=== PATIENT | female | born 1965 | race Caucasian/White ===

== ENCOUNTER 2018-12-03 02:26 | Outpatient (CLI) | payer BC, SELFPAY ==
[2018-12-03 07:59] LABS: Hemoglobin A1C 5.2 % (4.5-6.2)
[2018-12-03 08:37] LABS: Anion Gap 7.6 mmol/L (3-11); BUN 12 mg/dL (7-18); CO2 29.4 mmol/L (21.0-32.0); CREATININE 0.69 mg/dL (0.55-1.02); Calcium 8.6 mg/dL (8.5-10.1); Chloride 102 mmol/L (98-107); FREE T4 1.24 ng/dL (0.76-1.46); Glucose 86 mg/dL (70-100); Potassium 4.3 mmol/L (3.5-5.1); Sodium 139 mmol/L (136-145); TSH 0.11 uIU/mL (0.358-3.74)
[2018-12-03 08:50] LABS: Cholesterol 209 mg/dL (50-200); HDL Cholesterol 78 mg/dL (40-60); LDL CHOLESTEROL 113 mg/dL (<100); Triglyceride 57 mg/dL (30-150)
== END 2018-12-03 02:46 ==
PROVIDERS: PCP Nurse Practitioner Family; Visit Provider Nurse Practitioner Family
DX: E03.9 Hypothyroidism, unspecified (principal); E78.5 Hyperlipidemia, unspecified
CPT/HCPCS: 36415; 80048; 80061; 83721; 83036; 84439; 84443

== ENCOUNTER 2018-12-18 00:56 | Outpatient (CLI) | payer BC, SELFPAY ==
--- NOTE | 2018-12-18 12:20 | DI.MAMMO_ITS ---
SYMPTOMS/DIAGNOSIS: SCREENING, Z12.31 MAMMOGRAMS: Mammograms were interpreted according to the usual protocol including computer analysis with CAD system, tomosynthesis and C view imaging. Comparison is with prior examinations. No suspicious masses are seen in the right breast. No suspicious microcalcifications are present. There is an area of breast asymmetry in the upper central left breast on the mediolateral oblique view. This area likely lies in the outer quadrant of the breast on the craniocaudad view. These areas should be further evaluated with spot compression views. Ultrasound may be indicated at that time. IMPRESSION: Additional views of the left breast as described above. Category 0, breast density C. MQSA ASSESSMENT OF FINDINGS: Incomplete: Needs additional imaging evaluation. Category 0. Patient will receive a letter notifying them of these results. Bi-RADS category C. The breasts are heterogeneously dense, which may obscure small masses.
== END 2018-12-18 01:16 ==
PROVIDERS: PCP Nurse Practitioner Family; Visit Provider Nurse Practitioner Family
DX: Z12.31 Encounter for screening mammogram for malignant neoplasm of breast (principal); R92.8 Other abnormal and inconclusive findings on diagnostic imaging of breast
CPT/HCPCS: 77063; 77067

== ENCOUNTER 2018-12-24 01:07 | Outpatient (CLI) | payer BC, SELFPAY ==
--- NOTE | 2018-12-24 10:19 | DI.MAMMO_ITS ---
SYMPTOM/DIAGNOSIS: F/U MAMMO, LT BREAST ASYMMETRY LEFT BREAST ADDITIONAL VIEWS: Additional images are interpreted according to the usual protocol including tomosynthesis and 2D imaging. CC and MLO spot compression views with tomography were performed of the upper and outer aspects of the left breast for questioned area of asymmetry. No persistent abnormality is seen on the additional views performed. The findings are consistent with overlying fibroglandular tissue. There has been no change when compared with previous exams. IMPRESSION: Category 1, negative mammogram. Yearly screening mammography is recommended. SA ASSESSMENT OF FINDINGS: Negative. Category 1. Patient will receive a letter notifying them of these results. Bi-RADS category C. The breasts are heterogeneously dense, which may obscure small masses.
== END 2018-12-24 01:27 ==
PROVIDERS: PCP Nurse Practitioner Family; Visit Provider Nurse Practitioner Family
DX: Z12.31 Encounter for screening mammogram for malignant neoplasm of breast (principal); R92.8 Other abnormal and inconclusive findings on diagnostic imaging of breast; N64.59 Other signs and symptoms in breast
CPT/HCPCS: 77063; 77067

== ENCOUNTER 2019-01-31 07:02 | Outpatient (CLI) | payer BC, SELFPAY ==
[2019-01-31 08:30] LABS: FREE T4 1.25 ng/dL (0.76-1.46); TSH 0.38 uIU/mL (0.358-3.74)
== END 2019-01-31 07:22 ==
PROVIDERS: PCP Nurse Practitioner Family; Visit Provider Nurse Practitioner Family
DX: E03.9 Hypothyroidism, unspecified (principal)
CPT/HCPCS: 36415; 84439; 84443

== ENCOUNTER 2019-12-18 10:45 | Outpatient (REF) | payer BC, SELFPAY ==
[2019-12-19 13:18] LABS: Anion Gap 5.2 mmol/L (3-11); BUN 12 mg/dL (7-18); CO2 30.8 mmol/L (21.0-32.0); CREATININE 0.71 mg/dL (0.55-1.02); Calcium 8.6 mg/dL (8.5-10.1); Chloride 102 mmol/L (98-107); FREE T4 1.52 ng/dL (0.76-1.46); Glucose 86 mg/dL (74-106); Sodium 138 mmol/L (136-145); TSH 0.05 uIU/mL (0.36-3.74)
== END 2019-12-18 11:05 ==
LOC: LBN 10:45
PROVIDERS: PCP Nurse Practitioner Family; Visit Provider Nurse Practitioner Family
DX: E03.9 Hypothyroidism, unspecified (principal)
CPT/HCPCS: 80048; 84439; 84443

== ENCOUNTER 2020-02-12 01:44 | Outpatient (CLI) | payer BC, SELFPAY ==
[2020-02-12 12:23] LABS: FREE T4 1.02 ng/dL (0.76-1.46); TSH 0.37 uIU/mL (0.36-3.74)
== END 2020-02-12 02:04 ==
PROVIDERS: PCP Nurse Practitioner Family; Visit Provider Nurse Practitioner Family
DX: E03.9 Hypothyroidism, unspecified (principal)
CPT/HCPCS: 36415; 84439; 84443

== ENCOUNTER 2020-08-30 15:09 | Emergency (ER) | payer BC, SELFPAY ==
[2020-08-30] VITALS (25 sets, daily range): BP systolic 89–129; BP diastolic 57–107; PULSE 78–143; RESP 17–24; TEMP 36.5; O2SAT 96–100
--- NOTE | 2020-08-30 15:15 | RT.EKG_ITS ---
APPROVED REPORT Exam: Resting ECG Patient Location: E HR:105 bpm ECG Measurements Heart Rate 105 AXIS [place] 183 P 59 QRSd 93 QRS 74 QT 338 T 61 QTc 448 Conclusion Sinus tachycardia...rate> 99 Probable left atrial enlargement...P >50mS, <-0.10mV V1 Physician: Rate 105, sinus tachycardia, intervals stable, QRS normal, no significant ST elevations or depressions, however there is minimal nonspecific less than a millimeter depression in V4 V5 and V6. No STEMI.
--- NOTE | 2020-08-30 15:15 | DI.CT_ITS ---
EXAM: CT HEAD WO CLINICAL HISTORY: altered. TECHNIQUE: Imaging Protocol: Axial computed tomography images with coronal and sagittal reformatted images were created and reviewed COMPARISON: No exams were available for comparison FINDINGS: The examination is limited due to patient motion artifact. Ventricles and Extra axial spaces: Normal in size and morphology for the patient's age. Hemorrhage: None. Cerebral parenchyma: No evidence of an acute territorial infarct. Midline shift: None. Brainstem/Cerebellum: Normal. Calvarium: Normal. Visualized Paranasal sinuses/Mastoids: Clear. Soft Tissues: Unremarkable. IMPRESSION: No acute intracranial process. RADIATION DOSE DELIVERED: 598.99mGy.cm Total DLP DATA REPOSITORY: All CT scans at this facility are submitted to the National Radiology Data Registry (NRDR) Dose Index Registry (DIR) with the [employer] (ACR). RADIATION OPTIMIZATION: All CT scans at this facility use at least one of these dose optimization te chniques: automated exposure control; mA and/or kV adjustment per patient size (includes targeted exa ms where dose is matched to clinical indication); or iterative reconstruction.
[2020-08-30] MEDS: LORazepam 2 MG/ML VIAL IVP ×2 (15:25→15:28)
[2020-08-30 15:37] LABS: Absolute Basophil Count 0.05 10^3/uL (0.0-0.2); Absolute Eosinophil Count 0.07 10^3/uL (0.0-0.7); Absolute Lymphocyte Count 1.81 10^3/uL (1.2-3.4); Absolute Monocyte Count 0.49 10^3/uL (0.1-0.8); Absolute Neutrophil Count 2.43 10^3/uL (1.2-6.7); Eosinophils % 1.4; HCT 37.2 % (36.0-46.0); HGB 12.3 g/dL (11.2-15.7); Lymphocytes % 37.3; MCH 30.4 pg (27.0-33.0); MCHC 33.1 % (32.0-36.0); MCV 91.9 fL (80-95); MPV 10.7 fL (8.0-11.0); Monocytes % 10.1; Neutrophils % 50.2; Nucleated RBC 0 %; Platelet Count 177 10^3/uL (130-400); RBC 4.05 10^6/uL (3.93-5.22); RDW-SD 43.6 fL; WBC 4.85 10^3/uL (4.4-10.8)
--- NOTE | 2020-08-30 15:43 | W.ED.GENAD ---
Discharge Plan Disposition Patient Disposition: HOME Condition: Good Discharge Details Clinical Impression: Adverse effect of cannabis, Acute hyponatremia, Acute hypokalemia Primary Care Provider: Michelle Bonilla ED Provider: Carlos Be Home Meds and New Rx's Prescriptions: Continued levothyroxine 75 mcg capsule 75 mcg PO DAILY Qty: 90 RF: 4 Discharge Instructions Instructions: Hyponatremia (ED), Hypokalemia (ED) Additional Instructions: At this time it appears that the effect of your symptoms was caused by the ingestible cannabis. I would recommend using less next time. You were also noted to have a slightly low sodium and a slightly low potassium, both of these have been corrected here in the emergency department through the IV fluids that we gave you. Please continue to eat some salty foods for the next few days, and try to maintain a diet that is high in potassium. If you notice any worsening of your symptoms, or any new symptoms such as vomiting, diarrhea, fever, chills, shortness of breath, chest pain, numbness, weakness, or fainting , please return immediately to the emergency department for reevaluation. Please follow up with your primary care provider as soon as possible for reassessment and reevaluation. As always, it was a pleasure participating in your medical care today. Referrals: Michelle Bonilla, TOILET AND LAUNDRY SOAP SUPERVISOR [Primary Care Provider] - Medical Decision Making 55-year-old female with a past medical history of thyroid disease, high cholesterol, presents today for altered mental status. Patient states that she ate a ton of edibles 30 minutes prior to arrival. She came by EMS. EMS states that upon their arrival aside from mild tachycardia and hypertension she has been notably perseverating about staying in the loop, going into cardiac arrest, and having an out of body experience. Currently though she denies any chest pain or shortness of breath. She denies taking any other medications. No other complaints at this time. History is otherwise limited. Physical exam demonstrates no focal neurologic deficits, no meningeal signs, no asterixis or hyperreflexia. Suspect the patient is having a byproduct of mental status change secondary to the notable cannabis use, however we will evaluate for any acute psychologic or toxic agents that could have precipitated this as well. Will monitor closely get a CT scan reassess. 6:04 PM On reassessment patient is returned back to her normal baseline. She is feeling much better, hungry, and would like to go home. Laboratory work-up did show evidence of mild hypokalemia, hyponatremia, but magnesium was stable. Calcium was slightly low. Patient's potassium and sodium and magnesium have all been repleted here, once the infusion completes, patient will be discharged. As she has at baseline and repeat neurologic assessment shows no deficits I feel her symptoms are wholly secondary to the cannabis ingestion. CT negative for acute process. Patient will be discharged home. Discussed red flags which return. Discussed the case with her . I have extensively reviewed the treatment plan and discharge instructions with the patient and their family. I have addressed all patient concerns at this time. The patient and family was made aware of what symptoms to monitor for that would warrant a return to the emergency department. Discussed the plan with the patient and family, they demonstrate verbal understanding and agreement with our assessment and plan at this time. EKG 15: 32 Rate 105, sinus tachycardia, intervals stable, QRS normal, no significant ST elevations or depressions, however there is minimal nonspecific less than a millimeter depression in V4 V5 and V6. No STEMI. FINDINGS: Brain: No evidence for acute transcortical infarct. No mass effect or midline shift. No extra-axial collection. No acute intracranial hemorrhage. Basal cisterns are patent. Cerebral ventricles: No ventriculomegaly. Bones/joints: Unremarkable. No acute fracture. Paranasal sinuses: Visualized sinuses are unremarkable. No fluid levels. Mastoid air cells: Visualized mastoid air cells are well aerated. Soft tissues: Unremarkable. IMPRESSION: No evidence for acute transcortical infarct, acute intracranial hemorrhage, or mass effect. Thank you for allowing us to participate in the care of your patient. Dictated and Authenticated by: Donn Baez MD 08/30/2020 5:12 PM Eastern Time ([place] & [place]) HPI General Date/Time Provider Initiated Documentation: 08/30/20 15:15. HPI Narrative: 55-year-old female with a past medical history of thyroid disease, high cholesterol, presents today for altered mental status. Patient states that she ate a ton of edibles 30 minutes prior to arrival. She came by EMS. EMS states that upon their arrival aside from mild tachycardia and hypertension she has been notably perseverating about staying in the loop, going into cardiac arrest, and having an out of body experience. Currently though she denies any chest pain or shortness of breath. She denies taking any other medications. No other complaints at this time. History is otherwise limited. Related Data Home Medications Medication Instructions Recorded Confirmed levothyroxine 75 mcg capsule 75 mcg PO DAILY #90 tab-cap 02/16/20 Previous Rx's Medication Instructions Recorded levothyroxine 75 mcg capsule 75 mcg PO DAILY #90 tab-cap 02/16/20 Allergies Allergy/AdvReac Type Severity Reaction Status Date / Time opium tincture Allergy Severe AIRWAY Unverified 12/18/19 09:04 OBSTRUCTION codeine Allergy Unknown Unverified 12/18/19 09:04 morphine Allergy Unknown Unverified 12/18/19 09:04 oxycodone Allergy Unknown Unverified 12/18/19 09:04 General Stated Complaint: PsychEval VIRGILIO: 2 Review of Systems All systems reviewed & are unremarkable except as noted in HPI and below PFSH Medical History Hyperlipidemia Hypothyroidism Surgical History No significant past surgical history Family History Mother Autoimmune disease Father Myocardial infarction Heart disease Sister No problems noted. Sister No problems noted. 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 Caregiver/Support person: No Household members: spouse Housing: house Communication Needs: None Do you need help understanding health information?: Never Pets and animals: No Sexually active: Yes Do you think of yourself as: lesbian/smith/homosexual Current gender identity: female What is your relationship status?: How often do you talk on the phone with friends or family?: twice per week How often do you get together with friends or relatives?: once per week How often do you attend amish or baptist services?: 4 or more times per year Do you belong to any clubs or organized social groups?: no Panel score (0-1 are the most socially isolated patients): 3 What type of physical activity do you participate in: walking and other Details: Franco Chi, AFEP, Gardening Duration: 60-90 minutes/day Frequency: daily Dania/Jainism: Unitarian Universalist Special dania needs: No Seatbelt use: always Helmet use: Yes Helmet use: always Drive intox or ride w/intox delivery route driver: No History History 0 Para Hx # Term Pregnancies Multiple births Hx # Pregnancies Ectopic pregnancies AB induced Hx Number of Living Children AB spontaneous Exam Narrative Exam Narrative: 1.Const: Well-nourished, Well-developed, appearing stated age 2.Eyes: PERRL, no conjunctival injection, and symmetrical lids. Dilated pupils 3.ENT: Atraumatic external nose and ears. Moist MM. Neck: Symmetric, trachea midline, No thyromegaly. Patient demonstrates good movement of cervical neck. There is no nuchal rigidity, no nuchal tenderness. Patient is able to flex the neck without any difficulty or significant pain. Negative Kernig's and Brudzinski sign. 4.CVS: +S1/S2, No murmurs or gallops. Peripheral pulses 2+ and equal in all extremities. Brisk capillary refill in all extremities. 5.RESP: Unlabored respiratory effort. Clear to auscultation bilaterally. No wheezes rales or rhonchi 6.GI: Soft, Nontender/Nondistended, No hepatosplenomegaly. No guarding or rebound. 7.MSK: Normocephalic/Atraumatic, Extremities w/o deformity or ttp No cyanosis or clubbing, Normal movement of all extremities, no asterixis 8.Skin: Warm, Dry. No rashes or lesions. 9.Neuro: burglar alarm operator II-XII grossly intact. Sensation grossly intact, no focal neurologic deficits. No hyperreflexia. No focal neurologic deficits that can be appreciated on exam 10.Psych: (AAO) x3. Perseverations regarding multiple extrinsic thoughts and ideas. Pressured speech, and a slight altered sense of current reality. Course Vital Signs Vital signs: Vital Signs Temperature 36.5 C 08/30/20 15:10 Pulse 121 H 08/30/20 15:10 Respiratory Rate 18 08/30/20 15:10 Blood Pressure 129/107 H 08/30/20 15:10 Pulse Oximetry 100 08/30/20 15:10 Temperature 36.5 C 08/30/20 15:10 Temperature Source Skin 08/30/20 15:10 Pulse 119 H 08/30/20 15:27 Respiratory Rate 19 08/30/20 15:41 Respiratory Effort Non-Labored 08/30/20 15:41 Respiratory Depth Normal 08/30/20 15:41 Respiratory Pattern Normal 08/30/20 15:41 Blood Pressure 129/107 H 08/30/20 15:10 Blood Pressure Position Sitting 08/30/20 15:10 Pulse Oximetry 100 08/30/20 15:41 Oxygen Delivery Method Room Air 08/30/20 15:41 Oxygen Flow Rate 0 08/30/20 15:41 Lab/Test Results Lab/Test Results: Laboratory Tests Range/Units 08/30/20 15:32 WBC (4.4-10.8) 10^3/uL 4.85 RBC (3.93-5.22) 10^6/uL 4.05 Hgb (11.2-15.7) g/dL 12.3 Hct (36.0-46.0) % 37.2 MCV (80-95) fL 91.9 MCH (27.0-33.0) pg 30.4 MCHC (32.0-36.0) % 33.1 RDW (11.7-14.6) % 13.0 Plt Count (130-400) 10^3/uL 177 MPV (8.0-11.0) fL 10.7 Immature Gran % 0.0 Neutrophils % 50.2 Lymphocytes % 37.3 Monocytes % 10.1 Eosinophils % 1.4 Basophils % 1.0 Nucleated RBC % % 0 Absolute Neutrophils (1.2-6.7) 10^3/uL 2.43 Absolute Lymphocytes (1.2-3.4) 10^3/uL 1.81 Absolute Monocytes (0.1-0.8) 10^3/uL 0.49 Absolute Eosinophils (0.0-0.7) 10^3/uL 0.07 Absolute Basophils (0.0-0.2) 10^3/uL 0.05
[2020-08-30 15:56] LABS: Ammonia < 10 umol/L (11-32)
[2020-08-30 16:05] LABS: ALT 58 U/L (14-59); AST 45 U/L (15-37); Albumin 3.7 g/dL (3.4-5.0); Alkaline Phosphatase 70 U/L (46-116); Anion Gap 8.9 mmol/L (3-11); BUN 12 mg/dL (7-18); Bilirubin, Total 0.2 mg/dL (0.2-1.0); CO2 25.1 mmol/L (21.0-32.0); Chloride 95 mmol/L (98-107); Glucose 197 mg/dL (74-106); Sodium 129 mmol/L (136-145); TSH (W/Ref FT4) 0.67 uIU/mL (0.36-3.74); Total Protein 6.7 g/dL (6.4-8.2)
[2020-08-30 16:08] LABS: Troponin I < 0.05 ng/mL (<0.06)
--- NOTE | 2020-08-30 16:24 | PDOC.CMSAFED ---
- If Service Date Differs Date of service: 08/30/20 Time of Service: 16:24 Care Management Safety Plan Chief Complaint: Rachelle is a 55 year old female who presents to the ED via EMS after ingesting an unknown quantity of edibles and experiencing an altered mental status. CM will respond to ED to assess patient after patient has been medically cleared and assessed by screener. If screener deems patient meets criteria for psychiatric stabilization CM will facilitate interdepartmental huddle with [facility] screener for safety planning considerations and meet with patient to review [facility] policy and safety plan, establish individual wishes for treatment and maintain patient rights. In the interim; please note safety plan below to guide patient care while awaiting further assessment in the ED. SAFETY PLAN: 1. Will remain on suicide precautions and in paper clothes. 2. Will remain in room under direct supervision of one-on-one staff at all times provided by [employer], [employer], [employer] AND WASHER MECHANIC acoustical material worker. 3. May have paper cups, plates, finger foods as well as a cardboard spoon with which to eat meals. 4. Follow [facility] Management of the Admitted Behavioral Health Patient policy. 5. Comfort bath system only. 6. No personal belongings 7. No visitors. 8. No phone calls. 9. Due to VOLUNTARY status, if patient wishes to leave [facility], staff will contact [facility] Crisis Screener ([phone]) and On-Call Mortician Helper ([phone]) as soon as possible. In the event of elopement, notify [facility] Police ([phone]). If deemed appropriate for inpatient psychiatric care, safety plan will be established with patient, and care team, to adhere to patient goals, identify restrictions based on behavioral status, address nutrition, and determine allowed personal belongings, tools for hygiene and personal care. As well plan will determine level of activity including ambulation, level of supervision, visitors, and determine privileges based on level of acuity, behaviors and level of engagement by patient.
[2020-08-30 16:25] LABS: ETHANOL BLOOD < 3.0 mg/dL (<3)
[2020-08-30 16:54] LABS: Magnesium 1.9 mg/dL (1.8-2.4)
[2020-08-30 16:59] LABS: Acetaminophen < 2 ug/mL (10-30); Salicylate < 2.8 mg/dL (2.8-20.0)
[2020-08-30] MEDS: Potassium Chloride 20 MEQ TABCR 40 MEQ PO (17:03)
[2020-08-30] MEDS: Normal Saline 1,000 ML 1000 ML IV (17:07)
[2020-08-30] MEDS: MAGNESIUM SULFATE 1 GM/100 ML BAG IVPB (17:08)
[2020-08-30] MEDS: POTASSIUM CHLORIDE 20 MEQ/100 ML BAG 50 MEQ IVPB (17:08)
--- NOTE | 2020-08-30 17:12 | DI.VRAD_ITS ---
PROCEDURE INFORMATION: Exam: CT Head Without Contrast Exam date and time: 08/30/2020 4:43 PM Age: 55 years old Clinical indication: Altered mental status/memory loss TECHNIQUE: Imaging protocol: Computed tomography of the head without contrast. COMPARISON: No relevant prior studies available. FINDINGS: Brain: No evidence for acute transcortical infarct. No mass effect or midline shift. No extra-axial collection. No acute intracranial hemorrhage. Basal cisterns are patent. Cerebral ventricles: No ventriculomegaly. Bones/joints: Unremarkable. No acute fracture. Paranasal sinuses: Visualized sinuses are unremarkable. No fluid levels. Mastoid air cells: Visualized mastoid air cells are well aerated. Soft tissues: Unremarkable. IMPRESSION: No evidence for acute transcortical infarct, acute intracranial hemorrhage, or mass effect. Dictated and Authenticated by: Donn Baez MD. Ordering:JAYESH Gonzalez MD
[2020-08-30 17:21] LABS: BE (Venous) 3 mmol/L (-2-3); HCO3 (Venous) 27 mmol/L (23-28); O2 Sat (Venous) 98 %; TCO2 (Venous) 25 mmol/L (24-29); pCO2 (Venous) 40 mmHg (41-51); pH (Venous) 7.43 (7.31-7.41); pO2 (Venous) 178 mmHg
[2020-08-30 18:00] LABS: Troponin I < 0.05 ng/mL (<0.06)
== END 2020-08-30 18:55 | disposition home or self-care (01) ==
PROVIDERS: Emergency Provider Student in an Organized Health Care Education/Training Program; PCP Nurse Practitioner Family
DX: E87.0 Hyperosmolality and hypernatremia (principal); E83.42 Hypomagnesemia; R41.82 Altered mental status, unspecified; T40.7X5A Adverse effect of cannabis (derivatives), initial encounter; R03.0 Elevated blood-pressure reading, without diagnosis of hypertension
CPT/HCPCS: 36415; 80053; 80307; 82805; 93005; 96361; 96365; 96368; 96375; 99285; 70450; 80320; 80329; 81003; 82140; 83735; 84443; 84484; 85025; 93010; 99284; J2060; J3475; J3480

== ENCOUNTER 2020-11-23 03:49 | Outpatient (CLI) | payer BC, SELFPAY ==
[2020-11-23 09:30] LABS: Anion Gap 4.2 mmol/L (3-11); BUN 10 mg/dL (7-18); CO2 31.8 mmol/L (21.0-32.0); CREATININE 0.8 mg/dL (0.55-1.02); Calcium 8.6 mg/dL (8.5-10.1); Calculated LDL 122 mg/dL (<100); Chloride 103 mmol/L (98-107); Cholesterol 220 mg/dL (<200); Glucose 82 mg/dL (74-106); HDL Cholesterol 80 mg/dL (40-60); Potassium 4.3 mmol/L (3.5-5.1); Sodium 139 mmol/L (136-145); TSH 1.04 uIU/mL (0.36-3.74); Triglyceride 90 mg/dL (<150)
== END 2020-11-23 03:50 | disposition home or self-care (01) ==
LOC: LBO 03:49
PROVIDERS: PCP Nurse Practitioner Family; Visit Provider Nurse Practitioner Family
DX: E03.9 Hypothyroidism, unspecified (principal)
CPT/HCPCS: 36415; 80048; 80061; 84439; 84443

== ENCOUNTER 2020-12-20 09:45 | Outpatient (REF) | payer BC, SELFPAY ==
--- NOTE | 2020-12-20 08:45 | PAPFT_PTH ---
PATIENT: Rachelle Holland I LOC: [facility] U#:[id number] AGE/SX: 55/F ROOM: RE12/20/[address]: ROSA Brambila : 1965 BED: DIS: 12/20/2020 SPEC #: [id number] RECD: 12/20/20 12:49 STATUS: JENNIE REMary #: [id number] MITZY: 12/20/20 08:[address]: Michelle Bonilla DEPT: [facility] Cytology RECD BY: Yanet Martin Tissues: 1 - CX/ENDOCX FOR PAP SMEARS Procedures: PAP THIN PREP/UVM Screening HPV DNA PROBE Comments: [id number]
== END 2020-12-20 09:46 | disposition home or self-care (01) ==
LOC: LBN 09:45
PROVIDERS: PCP Nurse Practitioner Family; Visit Provider Nurse Practitioner Family
DX: Z12.4 Encounter for screening for malignant neoplasm of cervix (principal); Z11.51 Encounter for screening for human papillomavirus (HPV)
CPT/HCPCS: 88142; 87624

== ENCOUNTER 2021-11-28 02:44 | Outpatient (CLI) | payer BC, SELFPAY ==
[2021-11-28 09:13] LABS: Anion Gap 5.2 mmol/L (3-11); BUN 10 mg/dL (7-18); CO2 29.8 mmol/L (21.0-32.0); CREATININE 0.8 mg/dL (0.55-1.02); Calcium 8.8 mg/dL (8.5-10.1); Chloride 99 mmol/L (98-107); FREE T4 1.11 ng/dL (0.76-1.46); Glucose 85 mg/dL (74-106); Sodium 134 mmol/L (136-145); TSH 1.53 uIU/mL (0.36-3.74)
== END 2021-11-28 02:45 | disposition home or self-care (01) ==
LOC: LBO 02:44
PROVIDERS: PCP Nurse Practitioner Family; Visit Provider Nurse Practitioner Family
DX: Z00.00 Encounter for general adult medical examination without abnormal findings (principal)
CPT/HCPCS: 36415; 80048; 84439; 84443

== ENCOUNTER 2023-02-02 01:36 | Outpatient (CLI) | payer BC, SELFPAY ==
[2023-02-02 09:02] LABS: Anion Gap 5.5 mmol/L (3-11); BUN 8 mg/dL (7-18); CO2 30.5 mmol/L (21.0-32.0); CREATININE 0.7 mg/dL (0.55-1.02); Calcium 8.7 mg/dL (8.5-10.1); Chloride 94 mmol/L (98-107); Estimated GFR 100.19 (mL/min/1.73m2); Glucose 83 mg/dL (74-106); Potassium 3.7 mmol/L (3.5-5.1); Sodium 130 mmol/L (136-145); TSH (W/Ref FT4) 0.79 uIU/mL (0.36-3.74)
== END 2023-02-02 01:37 | disposition home or self-care (01) ==
LOC: LBO 01:36
PROVIDERS: PCP Nurse Practitioner Family; Visit Provider Nurse Practitioner Family
DX: Z00.00 Encounter for general adult medical examination without abnormal findings (principal); E03.9 Hypothyroidism, unspecified; E78.5 Hyperlipidemia, unspecified
CPT/HCPCS: 36415; 80048; 84443

== ENCOUNTER 2023-02-21 00:54 | Outpatient (CLI) | payer BC, SELFPAY ==
--- NOTE | 2023-02-21 07:04 | DI.MAMMO_ITS ---
Exam(s) MAMMO SCREENING EXAM: MAMMO SCREENING CLINICAL HISTORY: screening,z12.39 [facility]. TECHNIQUE: Bilateral full field digital CC and MLO mammographic images were obtained with 3D tomosyn thesis and utilizing computer aided detection (CAD). COMPARISON: Prior outside mammograms were reviewed. FINDINGS: There has been no significant change in the appearance and distribution of the fibroglandular tissue. Numerous benign-appearing microcalcifications are again noted anteriorly in both breasts There are no new spiculated masses nor malignant appearing microcalcification groups. There is no significant architectural distortion nor skin thickening-retraction. IMPRESSION: Stable findings. No radiographic evidence of malignancy. BI-RADS Category 2 - Benign Findings Breast Density - Category C - Heterogeneously dense Breast density Category C or D implies that the patient has dense breast tissue. Dense breast tissue can make it harder to find cancer on a mammogram. Dense breast tissue is also associated with an incr eased risk of breast cancer. This information about the result of the mammogram report was provided to the patient to raise their awareness. Use this report when you speak with the patient about their risks for breast cancer, which includes their family history. At that time, you may recommend additional screening tests (Ultrasoun d or MRI) as these tests may add significant information. A negative radiographic report should not delay biopsy if a dominant or clinically suspicious mass is present. Up to ten percent of cancers are not identified on mammography. A negative report may reinforce clinical impression. Adenosis and dense breasts may obscure an underlying neoplasm. False positive reports average 6 to 10%. Patient will receive a letter notifying them of these results.
== END 2023-02-21 01:14 ==
LOC: DI 00:54
PROVIDERS: PCP Nurse Practitioner Family; Visit Provider Nurse Practitioner Family
DX: Z12.31 Encounter for screening mammogram for malignant neoplasm of breast (principal)
CPT/HCPCS: 77063; 77067

== ENCOUNTER 2024-09-24 07:14 | Outpatient (CLI) | payer BC, SELFPAY ==
[2024-09-24 07:51] LABS: Anion Gap 6.6 mmol/L (3-11); BUN 9 mg/dL (7-18); CO2 30.4 mmol/L (21.0-32.0); CREATININE 0.8 mg/dL (0.55-1.02); Calculated LDL 101 mg/dL (<100); Chloride 105 mmol/L (98-107); Cholesterol 211 mg/dL (<200); Glucose 86 mg/dL (74-106); HDL Cholesterol 96 mg/dL (40-60); Potassium 3.8 mmol/L (3.5-5.1); Sodium 142 mmol/L (136-145); TSH (W/Ref FT4) 0.75 uIU/mL (0.36-3.74); Triglyceride 74 mg/dL (<150)
[2024-09-24 19:42] LABS: HIV-1/2 Ag & Ab Screen Negative (Negative)
[2024-09-24 20:09] LABS: Hepatitis C Ab w Rflx HCV PCR Negative (Negative)
[2024-09-24 21:23] LABS: HBs Antibody, Quant <3.1 mIU/mL (See Note); Hep B Surface Ab Negative (See Note); Hepatitis B Core Antibody Negative (Negative); Hepatitis B Surface Antigen Negative (Negative)
== END 2024-09-24 07:15 | disposition home or self-care (01) ==
LOC: LBO 07:15
PROVIDERS: PCP Nurse Practitioner Family; Visit Provider Nurse Practitioner Family
DX: Z00.00 Encounter for general adult medical examination without abnormal findings
CPT/HCPCS: 36415; 80048; 80061; 86704; 86706; 86803; 87340; 87389; 84443

== ENCOUNTER 2024-10-16 01:41 | Outpatient (CLI) | payer OTHER, SELFPAY ==
--- NOTE | 2024-10-16 | DI.DEXA_ITS ---
Exam(s) XR DEXA BONE DENSITY W/WO ROSELIA EXAM: XR DEXA BONE DENSITY W/WO ROSELIA CLINICAL HISTORY: ENCOUNTER SCREENING FOR OSTEOPOROSIS,[id number],Z13.820 TECHNIQUE: [email or web address] Horizon C densitometer analysis of left hip, lumbar spine and left forearm. Lat eral survey image of the thoracic and lumbar spine. COMPARISON: No exams were available for comparison FINDINGS: Lateral view of the thoracic and lumbar spine shows no evidence of compression fractures. Bone mineral density measurements of the lumbar spine correspond to a total T-score of -2.0, in the osteopenic range. Bone mineral density measurements of the left hip correspond to a total T-score of -2.0. The femora l neck T-score is -2.0, in the osteopenic range.. Theleft forearm bone mineral density measurements correspond to a T-score of the distal 3rd of -2.2, in the osteopenic range.. IMPRESSION: Osteopenia of the spine, hip and forearm.
--- NOTE | 2024-10-16 13:25 | DI.MAMMO_ITS ---
Exam(s) MAMMO SCREENING EXAM: MAMMO SCREENING CLINICAL HISTORY: [id number],SCREENING,z12.31. TECHNIQUE: Bilateral full field digital CC and MLO mammographic images were obtained with 3D tomosyn thesis and utilizing computer aided detection (CAD). COMPARISON: Prior mammograms were reviewed. FINDINGS: There has been no significant change in the appearance and distribution of the fibroglandular tissue. There are no new spiculated masses nor malignant appearing microcalcification groups. Benign-appearing microcalcifications are again noted anteriorly in both breasts. There is no significant architectural distortion nor skin thickening-retraction. IMPRESSION: No radiographic evidence of malignancy. BI-RADS Category 2 - Benign Findings Breast Density - Category C - Heterogeneously dense Breast density Category C or D implies that the patient has dense breast tissue. Dense breast tissue can make it harder to find cancer on a mammogram. Dense breast tissue is also associated with an incr eased risk of breast cancer. This information about the result of the mammogram report was provided to the patient to raise their awareness. Use this report when you speak with the patient about their risks for breast cancer, which includes their family history. At that time, you may recommend additional screening tests (Ultrasoun d or MRI) as these tests may add significant information. A negative radiographic report should not delay biopsy if a dominant or clinically suspicious mass is present. Up to ten percent of cancers are not identified on mammography. A negative report may reinforce clinical impression. Adenosis and dense breasts may obscure an underlying neoplasm. False positive reports average 6 to 10%. Patient will receive a letter notifying them of these results.
== END 2024-10-16 02:01 ==
LOC: DI 01:41
PROVIDERS: PCP Nurse Practitioner Family; Visit Provider Physician Assistant
DX: Z12.31 Encounter for screening mammogram for malignant neoplasm of breast (principal); Z13.820 Encounter for screening for osteoporosis; M85.89 Other specified disorders of bone density and structure, multiple sites
CPT/HCPCS: 77063; 77067; 77080